=== PATIENT | female | born 1965 | race Caucasian/White ===

== ENCOUNTER 2024-04-25 13:12 | Emergency (ER) | payer BC, OTHER ==
[~2024-04-25] VITALS: Ht 152.4 cm; Wt 72.6 kg
[~2024-04-25 13:12] MED LIST: ASPI-524; HYDR20TA; LORA-259; [UNRECOGNIZED DRUG - CODE]; [UNRECOGNIZED DRUG - OTHER]
[2024-04-25 13:19] VITALS: BP_SYST 148; PULSE 85; RESP 18; TEMP 98; O2SAT 98
[2024-04-25 13:59] LABS: BASOPHILS # (AUTO) 0.1 K/uL (0.0-0.2); BASOPHILS % (AUTO) 1.2 % (0.0-2.0); EOSINOPHILS # (AUTO) 0.1 K/uL (0.0-0.4); EOSINOPHILS % (AUTO) 1.4 % (0.0-4.0); HEMATOCRIT 43.9 % (36-48); HEMOGLOBIN 14.7 g/dL (12.0-16.0); LYMPHOCYTES # (AUTO) 2.2 K/uL (1.0-5.5); LYMPHOCYTES % (AUTO) 33.1 % (20.5-51.5); MEAN CORPUSCULAR HEMOGLOBIN 29 pg (27-31); MEAN CORPUSCULAR HGB CONC 33 % (32-36); MEAN CORPUSCULAR VOLUME 88 fL (79.0-98.0); MONOCYTES # (AUTO) 0.7 K/uL (0.0-1.0); MONOCYTES % (AUTO) 10.5 % (1.7-9.3); NEUTROPHILS # (AUTO) 3.6 K/uL (1.8-7.7); NEUTROPHILS % (AUTO) 53.8 % (40.0-70.0); PLATELET COUNT (AUTO) 273 K/uL (130-430); RED BLOOD CELL COUNT(AUTO) 4.98 MIL/uL (4.2-6.2); RED CELL DISTRIBUTION WIDTH 12.9 % (9.0-15.0); WHITE BLOOD COUNT (AUTO) 6.7 K/uL (4.8-10.8)
[2024-04-25 14:21] LABS: ANION GAP 10 (5-15); CALCIUM 8.8 mg/dL (8.4-11.0); CARBON DIOXIDE 26 mmol/L (23-29); CHLORIDE 103 mmol/L (98-107); CREATININE 0.87 mg/dL (0.55-1.30); GFR AFRICAN AMERICAN 85 mL/min (>90); GLUCOSE 93 mg/dL (74-106); POTASSIUM 3.6 mmol/L (3.5-5.1); SODIUM SERUM 139 mmol/L (136-145); UREA NITROGEN, BLOOD 11 mg/dL (8-21)
[2024-04-25 14:22] LABS: GFR NON AFRICAN-AMERICAN 71 mL/min (>90)
[2024-04-25 15:00] VITALS: BP_SYST 142; PULSE 85; RESP 18; TEMP 98; O2SAT 98
== END 2024-04-25 14:54 | disposition home or self-care (01) ==
LOC: SED 13:12
DX: H53.8 Other visual disturbances (principal); R20.0 Anesthesia of skin; R20.2 Paresthesia of skin; Z79.899 Other long term (current) drug therapy; Z79.2 Long term (current) use of antibiotics
CPT/HCPCS: 36415; 70450; 71045; 80048; 83880; 84484; 85025; 93005; 99285

== ENCOUNTER 2024-06-25 04:16 | Emergency (ER) | payer OTHER ==
[~2024-06-25] VITALS: Ht 152.4 cm; Wt 70.3 kg
[2024-06-25 04:20] VITALS: BP_SYST 133; PULSE 93; RESP 18; TEMP 98; O2SAT 97
[2024-06-25] MEDS: MORPHINE 2 MG/ML INJ. SYRINGE IVP ONE (05:19)
[2024-06-25] MEDS: NACL 0.9% 1,000 ML IV ONE (05:25)
[2024-06-25 05:26] VITALS: BP_SYST 116; PULSE 93; RESP 18; TEMP 98.6; O2SAT 93
[2024-06-25] MEDS: PANTOPRAZOLE SODIUM 40 MG/VIAL (PROTONIX) IVP ONE (06:30)
[2024-06-25 06:46] LABS: BASOPHILS % (AUTO) 0.3 % (0.0-2.0); EOSINOPHILS # (AUTO) 0.1 K/uL (0.0-0.4); EOSINOPHILS % (AUTO) 1.2 % (0.0-4.0); HEMATOCRIT 41.9 % (36-48); LYMPHOCYTES # (AUTO) 0.9 K/uL (1.0-5.5); LYMPHOCYTES % (AUTO) 7.1 % (20.5-51.5); MEAN CORPUSCULAR HEMOGLOBIN 29 pg (27-31); MEAN CORPUSCULAR HGB CONC 33 % (32-36); MEAN CORPUSCULAR VOLUME 88 fL (79.0-98.0); MONOCYTES # (AUTO) 1.1 K/uL (0.0-1.0); MONOCYTES % (AUTO) 9.2 % (1.7-9.3); NEUTROPHILS % (AUTO) 82.2 % (40.0-70.0); PLATELET COUNT (AUTO) 239 K/uL (130-430); RED BLOOD CELL COUNT(AUTO) 4.78 MIL/uL (4.2-6.2); RED CELL DISTRIBUTION WIDTH 12.6 % (9.0-15.0); WHITE BLOOD COUNT (AUTO) 12.1 K/uL (4.8-10.8)
[2024-06-25 07:50] LABS: ALBUMIN 3.2 g/dL (3.4-4.8); BILIRUBIN,DIRECT 0.2 mg/dL (0.0-0.3); CALCIUM 8.1 mg/dL (8.4-11.0); CREATININE 0.83 mg/dL (0.55-1.30); POTASSIUM 3.7 mmol/L (3.5-5.1)
== END 2024-06-25 07:59 | disposition left against medical advice (07) ==
LOC: SED 04:16
DX: R10.13 Epigastric pain (principal); R00.2 Palpitations; R19.7 Diarrhea, unspecified; Z79.899 Other long term (current) drug therapy; Z79.2 Long term (current) use of antibiotics
CPT/HCPCS: 99285; 74176; 96374; 96361; 80076; 80048; 83690; 85025; 84484; 36415; 93005; J2270; J7030